=== PATIENT | female | born 1980 | race Caucasian/White ===

== ENCOUNTER 2017-01-14 12:26 | Emergency (ER) | payer OTHER ==
[~2017-01-14] VITALS: Ht 144.8 cm; Wt 37.1 kg
[~2017-01-14 12:26] MED LIST: ABILIFY10 MG PO; ABILIFY15 MG PO; Benadryl PO; CYMBALTA60 MG; HYDROXYZINE HCL25 M1 PO; LITHIUM CARBON300 M2 PO; VYVANSE70 MG; WELLBUTRIN SR150 MG PO; WELLBUTRIN XL300 MG PO; ZYRTEC10 M2; Zoloft PO
[2017-01-14] MEDS ORDERED: ATARAX,VISTARIL50 MG PO (14:11)
[2017-01-14] MEDS ORDERED: PREDNISONE10 MG PO (14:11)
[2017-01-14 14:20] VITALS: BP 137/92
== END 2017-01-14 14:21 | disposition home or self-care (01) ==
LOC: EME 12:26
DX: T78.40XA Allergy, unspecified, initial encounter (principal); X58.XXXA Exposure to other specified factors, initial encounter; L30.9 Dermatitis, unspecified; F17.200 Nicotine dependence, unspecified, uncomplicated
CPT/HCPCS: 99281; 99283; J1100; Q0177

== ENCOUNTER 2017-01-26 17:08 | Emergency (ER) | payer OTHER ==
[~2017-01-26] VITALS: Ht 144.8 cm; Wt 36.6 kg
[~2017-01-26 17:08] MED LIST changes: +ATARAX,VISTARIL50 MG PO; +PREDNISONE10 MG PO
[2017-01-26] MEDS ORDERED: LEXAPRO10 MG PO (18:27)
[2017-01-26] MEDS ORDERED: ADDERALL20 MG PO (18:27)
[2017-01-26] MEDS ORDERED: SEROQUEL50 MG PO (18:28)
[2017-01-26] MEDS ORDERED: XANAX0.5 MG PO (18:28)
[2017-01-26 18:41] LABS: EOSINOPHIL (%) 0.5 % (0-5); EOSINOPHIL COUNT 0.1 K/uL (0-0.3); HEMATOCRIT 49.3 % (36.0-46.0); IMMATURE GRANULOCYTE (%) 0.4 % (0.0-0.7); IMMATURE GRANULOCYTE COUNT 0.1 K/uL; INSTRUMENT ABS NEUTROPHIL CT 12.6 K/uL; LYMPHOCYTE COUNT 2.9 K/uL (1.0-2.8); MCH 30.1 PG (29.0-34.0); MCHC 33.5 G/DL (30.0-36.0); MEAN PLAT.VOLUME 10.8 uM^3 (9.5-12.4); MONOCYTE (%) 6.1 % (3-12); NEUTROPHIL (%) 75.3 % (45-76); NEUTROPHIL COUNT 12.6 K/uL (1.8-6.4); PLATELET COUNT 253 K/uL (156-360); RBC DIS.WIDTH-CV 12.8 % (11.8-14.6); RBC DIS.WIDTH-SD 42.4 % (39-53); RED BLOOD COUNT 5.48 M/uL (3.80-5.20); WHITE BLOOD COUNT 16.8 K/uL (4.1-10.2)
[2017-01-26 18:50] LABS: CHLORIDE 100 mEq/L (99-109); POTASSIUM 3.6 mEq/L (3.7-5.4); SODIUM 137 mEq/L (136-147)
[2017-01-26 18:52] LABS: GLUCOSE 74 mg/dL (70-99)
[2017-01-26 18:53] LABS: ANION GAP 11 MEQ/L (2-14)
[2017-01-26 18:54] LABS: TOTAL BILIRUBIN 0.8 mg/dL (0.0-1.0)
[2017-01-26 18:55] LABS: ALKALINE PHOSPHATASE 68 IU/L (3-129)
[2017-01-26 18:56] LABS: GFR ESTIMATE (CALCULATED) > 59 mL/min/
[2017-01-26 18:57] LABS: UREA NITROGEN (BUN) 8 mg/dL (9-23)
[2017-01-26 21:10] VITALS: BP 120/60
== END 2017-01-26 21:10 | disposition home or self-care (01) ==
LOC: EME 17:08
PROVIDERS: Physician Assistant
DX: R11.2 Nausea with vomiting, unspecified (principal); R51 Headache; R20.2 Paresthesia of skin; J45.909 Unspecified asthma, uncomplicated; F17.200 Nicotine dependence, unspecified, uncomplicated
CPT/HCPCS: 74177; 80053; 85025; 99281; 99284; J7030

== ENCOUNTER 2017-03-29 12:37 | Emergency (ER) | payer OTHER ==
[~2017-03-29] VITALS: Ht 144.8 cm; Wt 39.0 kg
[~2017-03-29 12:37] MED LIST changes: +ADDERALL20 MG PO; +LEXAPRO10 MG PO; +SEROQUEL50 MG PO; +XANAX0.5 MG PO
[2017-03-29 13:36] LABS: HEMATOCRIT 47.4 % (36.0-46.0); MCV 91.2 FL (83-99); MEAN PLAT.VOLUME 11.3 uM^3 (9.5-12.4); PLATELET COUNT 197 K/uL (156-360); RBC DIS.WIDTH-CV 12.5 % (11.8-14.6); WHITE BLOOD COUNT 8.4 K/uL (4.1-10.2)
[2017-03-29 13:46] LABS: CHLORIDE 109 mEq/L (99-109); POTASSIUM 3.8 mEq/L (3.7-5.4); SODIUM 139 mEq/L (136-147)
[2017-03-29 13:48] LABS: GLUCOSE 92 mg/dL (70-99)
[2017-03-29 13:49] LABS: ANION GAP 8 MEQ/L (2-14)
[2017-03-29 13:52] LABS: GFR ESTIMATE (CALCULATED) > 59 mL/min/
[2017-03-29 13:53] LABS: ADD MIUA? NO; BILIRUBIN NEGATIVE; BLOOD NEGATIVE; COLOR YELLOW ((YELLOW)); GLUCOSE (STRIP) NEGATIVE; KETONES NEGATIVE; LEUKOCYTES NEGATIVE; NITRITE NEGATIVE; PROTEIN (STRIP) NEGATIVE; SPECIFIC GRAVITY 1.011 (1.000-1.030); UROBILINOGEN 0.2 MG/DL (0.2-1.0)
[2017-03-29 13:53] LABS: UREA NITROGEN (BUN) 10 mg/dL (9-23)
[2017-03-29 14:52] VITALS: BP 120/84
== END 2017-03-29 14:53 | disposition home or self-care (01) ==
LOC: EME 12:37
PROVIDERS: Physician Assistant
DX: R42 Dizziness and giddiness (principal); J45.909 Unspecified asthma, uncomplicated; F31.9 Bipolar disorder, unspecified; F32.9 Major depressive disorder, single episode, unspecified; F17.200 Nicotine dependence, unspecified, uncomplicated
CPT/HCPCS: 80048; 81003; 85027; 99281; 99284

== ENCOUNTER 2017-08-09 22:08 | Emergency (ER) | payer OTHER ==
[~2017-08-09] VITALS: Ht 144.8 cm; Wt 38.2 kg
[2017-08-09] MEDS ORDERED: ANTI-ITCH28 G1 TP (23:49)
[2017-08-09] MEDS ORDERED: PREDNISONE10 MG PO (23:49)
[2017-08-10 02:06] VITALS: BP 141/65
== END 2017-08-10 02:07 | disposition home or self-care (01) ==
LOC: EME 22:08
DX: L23.9 Allergic contact dermatitis, unspecified cause (principal); J45.909 Unspecified asthma, uncomplicated; F31.9 Bipolar disorder, unspecified; F17.200 Nicotine dependence, unspecified, uncomplicated; Z88.5 Allergy status to narcotic agent
CPT/HCPCS: 99281; 99285; J2930; J7030; S0028